=== PATIENT | male | born 1975 | race Caucasian/White ===

== ENCOUNTER → 2023-12-09 | Outpatient (CLI) | payer OTHER ==
[2023-12-10 06:07] LABS: HERPES SIMPLEX VIRUS-2 AB,IGG 11.3 index (0.00-0.90); HSV TYPE 1 AB, IGG 60.9 index (0.00-0.90)
== END | disposition home or self-care (01) ==
LOC: MSR 09:40
PROVIDERS: ATTEND Chiropractor
DX: S32.2XXA Fracture of coccyx, initial encounter for closed fracture (principal); S62.91XA Unspecified fracture of right hand, initial encounter for closed fracture; S62.92XA Unspecified fracture of left hand, initial encounter for closed fracture; M47.814 Spondylosis without myelopathy or radiculopathy, thoracic region; M41.84 Other forms of scoliosis, thoracic region; M19.042 Primary osteoarthritis, left hand; M47.816 Spondylosis without myelopathy or radiculopathy, lumbar region; M51.37 Other intervertebral disc degeneration, lumbosacral region; M16.11 Unilateral primary osteoarthritis, right hip; B00.9 Herpesviral infection, unspecified; M54.50 Low back pain, unspecified; Z96.642 Presence of left artificial hip joint; X58.XXXA Exposure to other specified factors, initial encounter; Y93.89 Activity, other specified; Y92.89 Other specified places as the place of occurrence of the external cause; Y99.8 Other external cause status
CPT/HCPCS: 72070; 72100; 73502; 86695; 86696